=== PATIENT | male | born 1985 | race Two or more races ===

== ENCOUNTER → 2017-02-05 | Outpatient (REF) | payer OTHER ==
[2017-02-05 18:26] LABS: CALCIUM OXALATE CRYSTALS SMALL
== END ==
LOC: M SMT 16:52
PROVIDERS: ATTEND Urology
DX: R31.0 Gross hematuria (principal)
CPT/HCPCS: 81001; 87086; 88108; G0463

== ENCOUNTER → 2017-02-11 | Outpatient (CLI) | payer OTHER ==
[~2017-02-11] MED LIST: ISOVUE-370 76% 100ML VIAL (Q9967) As Ordered ONE
--- NOTE | 2017-02-12 03:03 | REP ---
Clinical: Hematuria. Technique: Axial precontrast, contrast enhanced, and delayed images of the abdomen and pelvis using 100 ml Isovue 370 intravenous contrast material. Comparison: None. Findings: The right kidney/ureter is normal in all phases of enhancement and without hydronephrosis, nephrolithiasis, cystic or mass lesion. The left kidney demonstrates a complete duplicated collecting system to the level of the ureterovesicle junction without hydronephrosis of either moiety, and without nephrolithiasis, cystic or mass lesion. The bladder is unremarkable. Prostate and seminal vesicles are normal for age. Liver, spleen, pancreas, gallbladder, and bilateral adrenal glands are normal. The enteric system is without obstruction or acute inflammatory process. No ascites. No free air. No adenopathy. No mass lesion. Vasculature is normal. Surrounding musculoskeletal structures are intact. Lung bases are clear. Visualized portions of the heart and pericardium are normal. Impression: 1. 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 2. Both kidneys are otherwise normal and without hydronephrosis, nephrolithiasis, cystic or renal mass lesion. 3. No acute intra-abdominal or pelvic pathology appreciated. Signed by Binu Mccauley MD 02/12/2017 02:53 A
== END ==
LOC: EDUNIT# 17:30 → M RAD 17:33
PROVIDERS: ATTEND Urology
DX: R31.0 Gross hematuria (principal)

== ENCOUNTER → 2017-02-16 | Outpatient (CLI) | payer OTHER ==
[~2017-02-16] MED LIST changes: +CONRAY-43 43% 50ML VIAL (Q9960) As Ordered ONE; -ISOVUE-370 76% 100ML VIAL (Q9967) As Ordered ONE
--- NOTE | 2017-02-16 11:04 | REP ---
MRI RIGHT SHOULDER: TECHNIQUE: Axial T2 fat sat, gradient echo, sagittal oblique T2 fat sat, coronal oblique T1, T2 fat sat. There is mild ill-defined high signal in the supraspinatus tendon compatible with mild tendinopathy/tendinitis. I do not see evidence of a rotator cuff tendon tear. Minor hypertrophic changes are seen at the acromioclavicular joint with a curved shape of the acromion. Biceps tendon is within the bicipital groove with no tenosynovitis. There is no Hill-Sachs deformity. The deltoid muscle demonstrates no abnormal signal. The biceps labral complex appears intact. There is no definite labral tear. However, the labrum would be better evaluated with an MR arthrogram. That study was initially ordered but the patient refused the arthrogram procedure. There is no bone marrow edema or occult fracture. There is a normal amount of joint fluid. IMPRESSION: Mild tendinopathy/tendinitis of the supraspinatus tendon. No rotator cuff tear. No definite labral tear. Evaluation of the labrum is limited as the patient refused arthrogram procedure for MR arthrography. Signed by Art Ventura MD 02/16/2017 07:45 P
--- NOTE | 2017-02-16 17:46 | REP ---
RIGHT SHOULDER ARTHROGRAM: The procedure was performed under the direct supervision of Dr. Ventura. The benefits and risks including, but not limited to pain, infection, bleeding, and anaphylaxis were explained to the patient and informed consent was obtained. The right glenohumeral joint space was localized using fluoroscopic guidance. After marking the patient, the patient decided he did not want to finish the exam. The procedure was then discontinued. The patient was taken back to MRI for followup noncontrast right shoulder MRI images. 1 second of fluoroscopic time was utilized for this procedure. Reviewed by BENNY Jones 02/17/2017 09:37 AEdited and Signed by Art Ventura MD 02/17/2017 04:41 P
== END ==
LOC: M RADPRO 07:15 → EDUNIT# 07:30
PROVIDERS: ATTEND Physician Assistant
DX: M65.811 Other synovitis and tenosynovitis, right shoulder (principal)
CPT/HCPCS: 73040; 73221; Q9960

== ENCOUNTER → 2018-06-27 | Outpatient (CLI) | payer OTHER ==
[~2018-06-27] MED LIST changes: -CONRAY-43 43% 50ML VIAL (Q9960) As Ordered ONE; +PROHANCE 279.3MG/ML 15ML VIAL (A9576) As Ordered; +PROHANCE 279.3MG/ML 5ML VIAL (A9576) As Ordered
== END ==
LOC: M RAD 10:00
DX: R22.1 Localized swelling, mass and lump, neck (principal)

== ENCOUNTER → 2018-09-02 | Outpatient (REF) | payer OTHER ==
[2018-09-02 17:36] LABS: BASO # 0.1 10^3/uL (0.0-0.2); BASO % 0.8 % (0.0-1.0); EOS # 0.1 10^3/uL (0.0-0.50); HEMATOCRIT 47.6 % (42.0-52.0); HEMOGLOBIN 16.6 g/dl (13.5-17.5); IMMATURE GRANULOCYTE % 0.5 % (0-3.0); LYMPH # 2.5 10^3/uL (1.5-4.5); LYMPH % 26.5 % (24.0-44.0); MEAN CORPUSCULAR HEMOGLOBIN 28.7 pg (27.0-33.0); MEAN CORPUSCULAR HGB CONC 34.9 g/dl (32.0-36.5); MEAN CORPUSCULAR VOLUME 82.2 fl (80.0-96.0); MONO # 0.7 10^3/uL (0.0-0.8); MONO % 7.5 % (0.0-5.0); NEUTROPHILS % 63.7 % (36.0-66.0); PLATELET COUNT, AUTOMATED 315 10^3/uL (150-450); RED BLOOD COUNT 5.79 10^6/uL (4.30-6.10); RED CELL DISTRIBUTION WIDTH 12.8 % (11.5-14.5); WHITE BLOOD COUNT 9.5 10^3/uL (4.0-10.0)
[2018-09-02 18:01] LABS: ALBUMIN 4.4 GM/DL (3.2-5.2); ALBUMIN/GLOBULIN RATIO 1.47 (1.00-1.93); ALKALINE PHOSPHATASE 78 U/L (45-117); ALT/SGPT 68 U/L (12-78); ANION GAP 7 MEQ/L (8-16); AST/SGOT 27 U/L (7-37); BILIRUBIN,TOTAL 0.6 MG/DL (0.2-1.0); BLOOD UREA NITROGEN 14 MG/DL (7-18); CALCIUM LEVEL 9.3 MG/DL (8.5-10.1); CARBON DIOXIDE LEVEL 27 MEQ/L (21-32); CHLORIDE LEVEL 105 MEQ/L (98-107); CREATININE FOR GFR 1.13 MG/DL (0.70-1.30); GLOMERULAR FILTRATION RATE > 60.0 (>60); GLUCOSE, FASTING 95 MG/DL (70-100); POTASSIUM SERUM 4.2 MEQ/L (3.5-5.1); SODIUM LEVEL 139 MEQ/L (136-145); TOTAL PROTEIN 7.4 GM/DL (6.4-8.2); TROPONIN I < 0.02 NG/ML (< 0.10)
== END ==
LOC: M SFHCLERA 16:31
DX: R10.13 Epigastric pain (principal)

== ENCOUNTER → 2018-09-02 | Outpatient (CLI) | payer OTHER | LOC: M LRY 16:48 | DX: R42 Dizziness and giddiness (principal); R10.13 Epigastric pain | CPT/HCPCS: 80053 ==

== ENCOUNTER → 2018-09-13 | Outpatient (REF) | payer OTHER ==
[2018-09-14 14:13] LABS: H PYLORI STOOL ANTIGEN Negative (Negative)
== END ==
LOC: M SFHCLUC 11:27
DX: R10.13 Epigastric pain (principal)
CPT/HCPCS: 87338

== ENCOUNTER 2018-09-30 16:02 | Emergency (ER) | payer OTHER ==
[2018-09-30] MEDS: MECLIZINE 25 MG TABLET PO (16:56)
[2018-09-30 17:03] LABS: BEDSIDE GLUCOSE 95 MG/DL (70-105)
[2018-09-30 17:12] LABS: BASO # 0.1 10^3/uL (0.0-0.2); BASO % 0.8 % (0.0-1.0); EOS # 0.1 10^3/uL (0.0-0.50); EOS % 0.5 % (0.0-3.0); HEMATOCRIT 44.4 % (42.0-52.0); HEMOGLOBIN 15.8 g/dl (13.5-17.5); IMMATURE GRANULOCYTE % 0.4 % (0-3.0); LYMPH % 17.4 % (24.0-44.0); MEAN CORPUSCULAR HEMOGLOBIN 28.8 pg (27.0-33.0); MEAN CORPUSCULAR HGB CONC 35.6 g/dl (32.0-36.5); MONO # 0.7 10^3/uL (0.0-0.8); MONO % 6.2 % (0.0-5.0); NEUTROPHILS # 8.4 10^3/uL (1.8-7.7); NEUTROPHILS % 74.7 % (36.0-66.0); PLATELET COUNT, AUTOMATED 289 10^3/uL (150-450); RED BLOOD COUNT 5.48 10^6/uL (4.30-6.10); RED CELL DISTRIBUTION WIDTH 12.1 % (11.5-14.5); WHITE BLOOD COUNT 11.3 10^3/uL (4.0-10.0)
[2018-09-30 17:52] LABS: ANION GAP 10 MEQ/L (8-16); BLOOD UREA NITROGEN 12 MG/DL (7-18); CALCIUM LEVEL 8.8 MG/DL (8.5-10.1); CARBON DIOXIDE LEVEL 23 MEQ/L (21-32); CHLORIDE LEVEL 106 MEQ/L (98-107); CPK CREATINE PHOSPHOKINASE 185 U/L (39-308); CREATININE FOR GFR 1.01 MG/DL (0.70-1.30); GLOMERULAR FILTRATION RATE > 60.0 (>60); GLUCOSE, FASTING 96 MG/DL (70-100); MAGNESIUM LEVEL 1.8 MG/DL (1.8-2.4); MB/CK RELATIVE INDEX 1.03 (< OR =4); POTASSIUM SERUM 3.8 MEQ/L (3.5-5.1); SODIUM LEVEL 139 MEQ/L (136-145); TROPONIN I 0.02 NG/ML (< 0.10)
[2018-09-30 17:56] LABS: INR 1.02; PROTHROMBIN TIME 13.5 SECONDS (12.1-14.4)
== END 2018-09-30 18:17 | disposition home or self-care (01) ==
LOC: M ED 16:02
DX: R42 Dizziness and giddiness (principal); H83.09 Labyrinthitis, unspecified ear; E78.5 Hyperlipidemia, unspecified; K21.9 Gastro-esophageal reflux disease without esophagitis; Z79.899 Other long term (current) drug therapy; F17.210 Nicotine dependence, cigarettes, uncomplicated
CPT/HCPCS: 70450

== ENCOUNTER 2018-11-21 20:14 | Emergency (ER) | payer OTHER ==
[~2018-11-21] VITALS: Ht 190.5 cm; Wt 115.9 kg
[~2018-11-21 20:14] MED LIST changes: +ASPI1TAB20 PO; +FISH1000; +HYDR-3363 PO; +MECL-68 PO; +MELA3TAB49 PO; +MI-ASUS; +OMEP40CA2; -PROHANCE 279.3MG/ML 15ML VIAL (A9576) As Ordered; -PROHANCE 279.3MG/ML 5ML VIAL (A9576) As Ordered; +SIMV40TA2
[2018-11-21] MEDS ORDERED: NS 1,000 ML IV ONE (21:30)
[2018-11-21 21:35] LABS: HEMATOCRIT 48.5 % (42.0-52.0); HEMOGLOBIN 17.1 g/dl (13.5-17.5); MEAN CORPUSCULAR HGB CONC 35.3 g/dl (32.0-36.5); MEAN CORPUSCULAR VOLUME 82.2 fl (80.0-96.0); PLATELET COUNT, AUTOMATED 322 10^3/uL (150-450); WHITE BLOOD COUNT 10.2 10^3/uL (4.0-10.0)
[2018-11-21 21:58] LABS: BLOOD UREA NITROGEN 8 MG/DL (7-18); CALCIUM LEVEL 8.2 MG/DL (8.5-10.1); CARBON DIOXIDE LEVEL 24 MEQ/L (21-32); CHLORIDE LEVEL 106 MEQ/L (98-107); CREATININE FOR GFR 1.27 MG/DL (0.70-1.30); GLOMERULAR FILTRATION RATE > 60.0 (>60); GLUCOSE, FASTING 126 MG/DL (70-100); POTASSIUM SERUM 3.9 MEQ/L (3.5-5.1); SODIUM LEVEL 140 MEQ/L (136-145)
[2018-11-21] MEDS ORDERED: IBUP-1022 PO (22:04)
[2018-11-21] MEDS ORDERED: KEFL500C17 PO (22:04)
[2018-11-21 22:13] VITALS: BP 163/78
[2018-11-21] MEDS ORDERED: CEPHALEXIN 500 MG CAP PO ONE (22:15)
[2018-11-21] MEDS ORDERED: IBUPROFEN 600 MG TAB PO ONE (22:15)
== END 2018-11-21 22:22 | disposition home or self-care (01) ==
LOC: M ED 20:14
DX: L05.01 Pilonidal cyst with abscess (principal); K21.9 Gastro-esophageal reflux disease without esophagitis; F17.200 Nicotine dependence, unspecified, uncomplicated; Z79.899 Other long term (current) drug therapy

== ENCOUNTER 2018-11-24 21:42 | Emergency (ER) | payer OTHER ==
[~2018-11-24] VITALS: Ht 190.5 cm; Wt 115.9 kg
[~2018-11-24 21:42] MED LIST changes: +IBUP-1022 PO; +KEFL500C17 PO
[2018-11-25] MEDS ORDERED: LIDOCAINE W/EPINEPHRINE 1% 20ML VIAL SC ONE (02:30)
[2018-11-25] MEDS ORDERED: BUPIVACAINE HCL 0.5% 30 ML VIAL SC ONE (02:30)
[2018-11-25 03:02] VITALS: BP 115/69
== END 2018-11-25 03:04 | disposition home or self-care (01) ==
LOC: M ED 21:42
DX: L05.01 Pilonidal cyst with abscess (principal); I10 Essential (primary) hypertension; Z79.899 Other long term (current) drug therapy